=== PATIENT | female | born 1960 | race Caucasian/White ===

== ENCOUNTER 2024-03-22 09:19 | Day surgery (SDC) | payer BC ==
[2024-03-22] MEDS ORDERED: Lactated Ringers 1,000 ML IV ONE ×2 (09:40→13:45)
[2024-03-22] MEDS ORDERED: MEFOXIN 2 GM PREMIX** 2 GM/50 ML ML IV ONE (09:42)
[2024-03-22] MEDS: MEFOXIN 2 GM PREMIX** 2 GM/50 ML ML IV SCH (09:44)
[2024-03-22] MEDS: Lactated Ringers 1,000 ML IV SCH (09:44)
[2024-03-22 09:59] VITALS: RESP 18
[2024-03-22] MEDS ORDERED: Sensorcaine 0.25% 10 ML ONE ×2 (11:34→11:45)
[2024-03-22] MEDS ORDERED: Xylocaine-Mpf 2% 5 Ml Vial ONE (13:07)
[2024-03-22] MEDS ORDERED: BRIDION 200MG/2ML IV ONE (13:07)
[2024-03-22] MEDS ORDERED: TORAdol 30 mg Injection ONE (13:07)
[2024-03-22] MEDS ORDERED: DIPRIVAN 200 MG/20 ML IV ONE (13:07)
[2024-03-22] MEDS ORDERED: Decadron 4 MG INJ ONE (13:07)
[2024-03-22] MEDS ORDERED: ROCURONIUM BROMIDE IV ONE (13:07)
[2024-03-22] MEDS ORDERED: SUBLIMAZE 100 MCG/2 ML ONE ×2 (13:07→14:52)
[2024-03-22] MEDS ORDERED: Zofran 4 MG/2 ML VIAL ONE (13:07)
[2024-03-22] MEDS ORDERED: LOPRESSOR INJECTION IV ONE (13:17)
[2024-03-22] MEDS ORDERED: APRESOLINE 20 MG/ML INJ ONE (13:40)
[2024-03-22 15:25] VITALS: O2SAT 94
[2024-03-22 15:33] VITALS: BP 133/66; PULSE 72; TEMP 97.2
--- NOTE | 2024-03-23 12:09 | OP ---
SURGERY DATE/TIME: 03/22/2024 8018 [id number] PREOPERATIVE DIAGNOSIS: Chronic cholecystitis. POSTOPERATIVE DIAGNOSIS: Chronic cholecystitis. PROCEDURE: Laparoscopic cholecystectomy. SURGEON: Cleve See MD ANESTHESIA: General. ESTIMATED BLOOD LOSS: Minimal. DISPOSITION: The patient is stable. COMPLICATIONS: None. HISTORY OF PRESENT ILLNESS: This is a 63-year-old female who presents with symptoms consistent with chronic cholecystitis. I discussed with the patient risk of infection, bleeding, injury to neurovascular structure, failure to resolve symptoms. She elected to proceed with surgery. FINDINGS: Hepatomegaly. Difficult exposure just due to the hepatomegaly. Critical view obtained. DESCRIPTION OF PROCEDURE AND FINDINGS: The patient was brought to the operating room. General anesthesia induced. Routinely positioned, prepped and draped. Time-out performed. Received preoperative antibiotic. The 5 mm Optiview trocar placed in the left upper quadrant, an 11 mm right paramedian trocar placed, 2 additional 5 mm trocars placed right upper quadrant. There is significant hepatomegaly that obscures the field, but the left upper quadrant port is able to retract the left lobe of the liver and dissect, but it was difficult and eventually the cystic duct and cystic artery dissected out. Critical view was clearly obtained. Both were taken with 5 mm metal clip blood collector. We then divided. Gallbladder taken off the liver bed. I did get a small amount of bile spillage. No spillage of stones. This was placed in a bag and removed from the 11 mm trocar site. Right upper quadrant ports were removed under direct visualization after the 11 trocar site had been closed with 0 Vicryl interrupted suture passer. Marcaine injected in all the port sites. Skin was closed with 4-0 Vicryl sutures. Steri-Strips and sterile dressings applied. All counts were correct. The patient tolerated the procedure well, was extubated and taken to Recovery in stable conation.
== END 2024-03-22 15:40 | disposition home or self-care (01) ==
LOC: SDC 09:19
PROVIDERS: ATTEND Surgery
DX: K81.1 Chronic cholecystitis (principal)
CPT/HCPCS: J0360; J0694; J1100; J1885; J2405; J2704; J3010